=== PATIENT | male | born 1955 | race Caucasian/White ===

== ENCOUNTER → 2020-12-13 | Outpatient (CLI) | payer MEDICARE ==
--- NOTE | 2020-12-13 12:29 | REPPI ---
INDICATION: ELEVATED PSA. COMPARISON: Comparison study 02 May 2012.. TECHNIQUE: Transrectal prostate sonography. FINDINGS: Trans rectal prostate sonography demonstrates unremarkable seminal vesicles. Prostate gland is heterogeneous, with calcifications and cystic changes noted. Glandular dimensions are measured at 5.7 x 4.0 x 5.3 cm with a calculated glandular volume of 64.2 ml. There are 2 hypoechoic nodules visible including an 8 mm hypoechoic nodule in the left mid apex and a 10 mm lesion in the right mid gland. Transrectal sonographic guidance is provided to Dr. Saavedra who performed trans rectal ultrasound guided needle biopsy procedure. IMPRESSION: Transrectal prostate sonographic findings as above. <Electronically signed by Bhaskar Littlejohn > 12/13/20 1304
== END ==
LOC: M SMT PRO 10:30
PROVIDERS: ATTEND Urology
DX: R97.20 Elevated prostate specific antigen [PSA] (principal); N40.2 Nodular prostate without lower urinary tract symptoms
CPT/HCPCS: 76872; 76942; G0416